=== PATIENT | female | born 1960 | race Caucasian/White ===

== ENCOUNTER 2018-07-26 20:56 | Observation (INO) | payer OTHER ==
[~2018-07-26] VITALS: Ht 154.9 cm; Wt 70.0 kg
[2018-07-26] MEDS ORDERED: MIDAZOLAM 1 MG/ML, 2ML ONE (21:20)
[2018-07-26] MEDS ORDERED: MIDAZOLAM 1 MG/ML, 2ML IM ONE (21:30)
[2018-07-26 22:10] LABS: BASOPHILS # (AUTO) 0.04 x10^3/uL (0-0.1); BASOPHILS % (AUTO) 0 % (0-1); EOSINOPHILS # (AUTO) 0.16 x10^3/uL (0-0.4); EOSINOPHILS % (AUTO) 2 % (1-7); LYMPHOCYTES # (AUTO) 2.18 x10^3/uL (1-3.4); LYMPHOCYTES % (AUTO) 22 % (22-44); MD NO; MEAN CORPUSCULAR HEMOGLOBIN 30.6 pg (27.0-34.8); MEAN CORPUSCULAR HGB CONC 34.4 g/dL (32.4-35.8); MONOCYTES # (AUTO) 0.53 x10^3/uL (0.2-0.8); MONOCYTES % (AUTO) 5 % (2-9); NEUTROPHILS % (AUTO) 71 % (42-75); PLATELET COUNT 354 x10^3/uL (130-400); RED CELL DISTRIBUTION WIDTH 13.1 % (9.6-15.2)
[2018-07-26 22:22] LABS: ALBUMIN 3.6 g/dL (3.4-5.0); ANION GAP 9 mmol/L (5-15); CALCIUM 8.2 mg/dL (8.5-10.1); CHLORIDE 106 mmol/L (98-107); SALICYLATE LEVEL 15.4 mg/dL (2.8-20.0)
[2018-07-26 22:24] LABS: ACETAMINOPHEN < 2 mcg/mL (10-30)
[2018-07-27] MEDS ORDERED: prozac (04:33)
[2018-07-27] MEDS ORDERED: hydroxyzine (04:33)
[2018-07-27] MEDS ORDERED: LORazepam 2 MG/ML, 1ML IM PRN (05:00)
[2018-07-27] MEDS: NICOTINE 7 MG/24 HR PATCH.TD24 TD SCH (05:00)
[2018-07-27] MEDS ORDERED: LORazepam 1MG TABLET PO PRN (05:00)
[2018-07-27] MEDS ORDERED: DOCUSATE 100 MG CAPSULE PO PRN (05:00)
[2018-07-27] MEDS ORDERED: HYDR50TA13 PO (05:24)
[2018-07-27] MEDS ORDERED: MELA5TAB19 PO (05:24)
[2018-07-27 05:36] LABS: AMPHETAMINE SCREEN, URINE Negative (Negative); BARBITURATE SCREEN, URINE Negative (Negative); BENZODIAZEPINE SCREEN, URINE Positive (Negative); CANNABINOID SCREEN, URINE Negative (Negative); COCAINE SCREEN, URINE Negative (Negative); METHADONE SCREEN, URINE Negative (Negative); OPIATE SCREEN, URINE Negative (Negative)
[2018-07-27 10:46] VITALS: BP 131/50
[2018-07-27 12:08] VITALS: BP 131/50
[2018-07-27] MEDS ORDERED: PROP10TA PO (13:17)
[2018-07-27] MEDS ORDERED: PRAZ1CAP2 PO (13:18)
[2018-07-27] MEDS ORDERED: LAMO25TA5 PO (13:18)
[2018-07-27 19:22] VITALS: BP 109/72
[2018-07-28 08:00] VITALS: BP 111/77
[2018-07-28] MEDS ORDERED: GABA300S PO (08:37)
[2018-07-28] MEDS: NICOTINE 7 MG/24 HR PATCH.TD24 TD SCH (08:38)
[2018-07-28 19:38] VITALS: BP 116/74
[2018-07-29 08:00] VITALS: BP 115/66
[2018-07-29] MEDS: NICOTINE 7 MG/24 HR PATCH.TD24 TD SCH (08:59)
[2018-07-29 19:11] VITALS: BP 113/75
[2018-07-30 08:19] VITALS: BP 120/78
[2018-07-30] MEDS: NICOTINE 7 MG/24 HR PATCH.TD24 TD SCH (08:40)
== END 2018-07-30 11:30 | disposition home or self-care (01) ==
LOC: ED 07-27 04:40 → EDIP 07-27 04:54 → 2N 07-27 10:44
PROVIDERS: ADMIT Internal Medicine; ATTEND Internal Medicine
DX: T14.91XA Suicide attempt, initial encounter (principal); T50.902A Poisoning by unspecified drugs, medicaments and biological substances, intentional self-harm, initial encounter; F31.9 Bipolar disorder, unspecified; F10.129 Alcohol abuse with intoxication, unspecified; F43.12 Post-traumatic stress disorder, chronic; F17.210 Nicotine dependence, cigarettes, uncomplicated; Z90.710 Acquired absence of both cervix and uterus; Y92.89 Other specified places as the place of occurrence of the external cause; Y93.89 Activity, other specified; Y99.8 Other external cause status; Z91.5 Personal history of self-harm
CPT/HCPCS: 36415; 80048; 80307; 80329; 82040; 85025; 93005; 96372; 99284; G0378; J2250; G0480